=== PATIENT | male | born 1945 | race African-American/Black ===

== ENCOUNTER 2021-12-29 11:01 | Inpatient (IN) | payer MEDICARE, OTHER ==
[2021-12-29] VITALS (10 sets, daily range): BP systolic 87–139; BP diastolic 25–83
[~2021-12-29] VITALS: Ht 172.7 cm; Wt 60.3 kg
--- NOTE | 2021-12-29 11:06 | NUR ---
TO ER BED 8, [id number] FRM [facility] FOR NOTED DARK URINE AND O2 DESATURATION, TRACH COLLAR CONNECTED TO 5LPM , HOLDER CATH, CONNECTED TO MONITOR, AWAITING MD ORDERS
[2021-12-29] MEDS ORDERED: IV NS 0.9% 1,000 ML BAG IV ONE ×2 (11:30→13:30)
[2021-12-29] MEDS ORDERED: CEFTRIAXONE 1GM BAG (ER ONLY) 50 ML IV ONE ×2 (11:30→11:34)
--- NOTE | 2021-12-29 11:39 | NUR ---
FIELD CLERK AT BEDSIDE FOR XRAY
--- NOTE | 2021-12-29 11:40 | NUR ---
URINE COLLECTED AND SENT TO LAB
[2021-12-29 11:53] LABS: BASOPHILS % (AUTO) 0.3 % (0.0-2.0); EOSINOPHILS % (AUTO) 0.5 % (0.0-6.0); HEMATOCRIT 24 % (39-51); HEMOGLOBIN 7.2 g/dL (13.5-17.5); LYMPHOCYTES # (AUTO) 0.7 K/uL (0.8-4.8); LYMPHOCYTES % (AUTO) 4.4 % (20.0-44.0); MEAN CORPUSCULAR HGB CONC 31 g/dl (31.0-36.0); MEAN CORPUSCULAR VOLUME 95 fL (80-96); MONOCYTES # (AUTO) 1.4 K/uL (0.1-1.30); MONOCYTES % (AUTO) 8.4 % (2.0-12.0); NEUTROPHILS # (AUTO) 14.1 K/uL (1.8-8.9); NEUTROPHILS % (AUTO) 86.4 % (43.0-81.0); PLATELET COUNT (AUTO) 118 K/uL (150-450); RED BLOOD CELL COUNT(AUTO) 2.48 MIL/uL (4.5-6.0); WHITE BLOOD COUNT (AUTO) 16.3 K/uL (4.3-11.0)
[2021-12-29] MEDS ORDERED: CARV3.12 GT (11:56)
[2021-12-29] MEDS ORDERED: SCOP1PAT11 TD (11:56)
[2021-12-29] MEDS ORDERED: AMPI3VIA5 IJ (11:56)
[2021-12-29] MEDS ORDERED: CEFI1VIA IV (11:56)
[2021-12-29] MEDS ORDERED: PANT40TA2 GT (11:56)
[2021-12-29] MEDS ORDERED: MINO100T GT (11:56)
[2021-12-29] MEDS ORDERED: LEVE1000 GT (11:56)
[2021-12-29] MEDS ORDERED: MEMA1CAP2 GT (11:56)
[2021-12-29] MEDS ORDERED: METF-440 GT (11:56)
[2021-12-29] MEDS ORDERED: IPRA4AER IH (11:56)
[2021-12-29] MEDS ORDERED: INSU100V39 SQ (11:56)
[2021-12-29] MEDS ORDERED: CHOL200013 GT (11:56)
[2021-12-29] MEDS ORDERED: INSU100V7 SQ (11:56)
[2021-12-29] MEDS ORDERED: CHLO473M3 MM (11:56)
[2021-12-29] MEDS ORDERED: ROSU40TA GT (11:56)
[2021-12-29] MEDS ORDERED: AMLO10TA4 GT (11:56)
[2021-12-29 11:57] LABS: BILIRUBIN,URINE NEGATIVE (NEGATIVE); COLOR,URINE BROWN (YELLOW); LEUKOCYTE ESTERASE ,URINE NEGATIVE (NEGATIVE); NITRITE, URINE NEGATIVE (NEGATIVE); PH,URINE 5.5 (5.0-8.0); PROTEIN,URINE 1+ mg/dl (NEGATIVE); UGLUCOSE NEGATIVE (NEGATIVE); UROBILINOGEN,URINE 0.2 EU/dL (0.2)
--- NOTE | 2021-12-29 12:20 | NUR ---
RESPIRATORY AT BEDSIDE FOR ABG
[2021-12-29 12:24] LABS: CALCIUM, SERUM 9.1 mg/dL (8.5-10.1); CARBON DIOXIDE 21 mmol/L (21-32); CHLORIDE 125 mmol/L (98-107); CREATININE 2.4 mg/dL (0.6-1.3); GLUCOSE 161 mg/dL (74-106); POTASSIUM 4.6 mmol/L (3.5-5.1)
[2021-12-29 12:30] LABS: BACTERIA,URINE 3+ /HPF (None Seen); YEAST,URINE Many /HPF (None Seen)
[2021-12-29 12:30] LABS: ALANINE AMINOTRANSFERASE 16 U/L (12-78); ALKALINE PHOSPHATASE 92 U/L (46-116); ASPARTATE AMINOTRANSFERASE 18 U/L (15-37); BILIRUBIN,DIRECT 0.1 mg/dL (0.0-0.2); BILIRUBIN,TOTAL 1.4 mg/dL (0.2-1.0); TOTAL PROTEIN, SERUM 5.2 g/dL (6.4-8.2)
[2021-12-29] MEDS ORDERED: VANCOMYCIN 1 GM in IV D5W 250 ML IV ONE (12:30)
[2021-12-29] MEDS ORDERED: PIPERACILLIN /TAZOBACTAM 3.375 G in IV D5W 50 ML IV ONE (12:30)
--- NOTE | 2021-12-29 12:30 | NUR ---
COVID SWAB DONE AND SENT TO LAB
[2021-12-29 12:36] LABS: SODIUM SERUM 158 mmol/L (136-145); UREA NITROGEN, BLOOD 93 mg/dL (7-18)
[2021-12-29 12:38] LABS: ALBUMIN 1.1 g/dL (3.4-5.0)
--- NOTE | 2021-12-29 12:38 | NUR ---
ALBUMIN 1.1
[2021-12-29 12:40] LABS: ABG BASE EXCESS -5.3 mmol/L; ABG PCO2 27.7 mmHg (35.0-45.0); ABG PH 7.436 (7.350-7.450); ABG PO2 38.1 mmHg (75.0-100.0); COHb 0.3 % (0.5-1.5); MetHb 0.4 % (0.0-1.5); O2Hb 67.3 % (94.0-97.0); SITE, ABG Right Radial; VENT MODE, BG 10 LPM Trach T-piece
--- NOTE | 2021-12-29 12:42 | NUR ---
LACTIC 3.8
[2021-12-29] MEDS ORDERED: IV D5/0.45 NACL 500 ML IV PRN (13:00)
[2021-12-29] MEDS ORDERED: ONDANSETRON HCL/PF 4 MG/2 ML VIAL IVP PRN (13:30)
[2021-12-29] MEDS ORDERED: Z GUARD REMEDY 4 OZ OINT TP PRN (13:30)
[2021-12-29] MEDS ORDERED: ACETAMINOPHEN 325 MG TABLET PO PRN (13:30)
[2021-12-29 13:54] LABS: BASOPHILS # (AUTO) 0.1 K/uL (0.0-0.2); BASOPHILS % (AUTO) 0.5 % (0.0-2.0); EOSINOPHILS % (AUTO) 0.5 % (0.0-6.0); HEMATOCRIT 23 % (39-51); HEMOGLOBIN 7.1 g/dL (13.5-17.5); LYMPHOCYTES # (AUTO) 1.1 K/uL (0.8-4.8); LYMPHOCYTES % (AUTO) 6.9 % (20.0-44.0); MEAN CORPUSCULAR HGB CONC 30 g/dl (31.0-36.0); MEAN CORPUSCULAR VOLUME 96 fL (80-96); MONOCYTES # (AUTO) 1.7 K/uL (0.1-1.30); MONOCYTES % (AUTO) 11.4 % (2.0-12.0); NEUTROPHILS # (AUTO) 12.3 K/uL (1.8-8.9); NEUTROPHILS % (AUTO) 80.7 % (43.0-81.0); PLATELET COUNT (AUTO) 100 K/uL (150-450); RED BLOOD CELL COUNT(AUTO) 2.44 MIL/uL (4.5-6.0); WHITE BLOOD COUNT (AUTO) 15.3 K/uL (4.3-11.0)
--- NOTE | 2021-12-29 14:13 | NUR ---
BED 257
--- NOTE | 2021-12-29 14:42 | NUR ---
ATTEMPTED TO GIVE REPORT, NURSE IS ON LUNCH, ADVISED TO CALL BACK
--- NOTE | 2021-12-29 14:59 | NUR ---
REPORT GIVEN TO RED FOR SANTOS
--- NOTE | 2021-12-29 15:16 | NUR ---
LACTIC ACID 3.2
--- NOTE | 2021-12-29 15:22 | NUR ---
TRANSFERRED TO BED 257 IN STABLE CONDITION
[2021-12-29] MEDS: PANTOPRAZOLE 40 MG VIAL IV SCH ×2 (16:17→20:53)
[2021-12-29] MEDS: IV D5/0.45 NACL 1,000 ML IV PRN (16:25)
[2021-12-29] MEDS ORDERED: IV NS 0.9% 1,000 ML IV ONE (18:00)
[2021-12-29] MEDS ORDERED: NOREPINEPHRINE 8 MG in IV NS 0.9% 242 ML IV PRN (18:00)
[2021-12-29] MEDS ORDERED: ZOSYN IVPB 2.25 G in IV D5W 50ml IV SCH (18:00)
[2021-12-29] MEDS: MEROPENEM 500 MG in IV NS 0.9% 50 ML IV SCH (18:03)
--- NOTE | 2021-12-29 19:05 | NUR ---
ECOMMERCE MARKETING SPECIALISTBUSINESS DEVELOPMENT DIRECTOR NOTE: ADMITTED PT. FROM ER VIA [facility] AT 1515. REPORT GIVEN BY MILK HAULER TY. PT. LETHARGIC, NON-VERBAL. ON TRACH/VENT: PORTEX #7; AC - 14; VT - 450; FIO2 - 50%; PEEP - 5. CHEST RISING SYMMETRICALLY, NO S/S OF RESPIRATORY DISTRESS. PUBLICATION DISTRIBUTOR READS NSR. PT. HAS G-TUBE, PATENT AND CLAMPED, NO RESIDUAL NOTED. DRESSING C/D/I. NO S/S OF INFECTION. PT. HAS HOLDER CATH WITH 125 ML CLEAR BROWNISH MANRIQUEZ URINE OUTPUT DRAINING BELOW BLADDER. PT. HAS EDEMA ON UPPER AND LOWER EXTREMITIES. SKIN ISSUES NOTED ON L HEEL, SACRUM, L LATERAL CHEST WALL AND R CHEEK. SKIN PRECAUTIONS DONE AND WOUND CONSULT ORDERED. IV ACCESS ON R FA #20G, PATENT AND SALINE LOCKED; INSERTED R HAND #22G WITH D5 1/2 NS RUNNING AT 125 ML/HR. IV DRESSINGS C/D/I WITH NO S/S OF INFILTRATION NOTED. WAITING FOR PICC LINE INSERTION. GIVEN 1L OF NS BOLUS PER MICHAEL BATTERY PLATE REMOVER ORDER DUE TO SBP IN LOW 90'S. BP SLIGHTLY IMPROVED. LEVOPHED ON STANDBY. SAFETY MEASURES MAINTAINED: BED IN LOWEST AND LOCKED POSITION, HOB ELEVATED AT 30 DEGREES, SIDE RAILS UP X3, BED ALARM ON, CALL LIGHT WITHIN REACH. ENDORSED CONTINUITY OF CARE TO DONATION SPECIALIST RN.
[2021-12-30] VITALS (32 sets, daily range): BP systolic 90–155; BP diastolic 28–91
[2021-12-30] MEDS: IV D5/0.45 NACL 1,000 ML IV PRN ×2 (01:20→13:02)
[2021-12-30 04:00] LABS: BASOPHILS % (AUTO) 0.1 % (0.0-2.0); EOSINOPHILS % (AUTO) 0.5 % (0.0-6.0); LYMPHOCYTES # (AUTO) 1.2 K/uL (0.8-4.8); LYMPHOCYTES % (AUTO) 6.7 % (20.0-44.0); MEAN CORPUSCULAR HGB CONC 30 g/dl (31.0-36.0); MEAN CORPUSCULAR VOLUME 97 fL (80-96); MONOCYTES # (AUTO) 1.7 K/uL (0.1-1.30); MONOCYTES % (AUTO) 9.7 % (2.0-12.0); NEUTROPHILS # (AUTO) 14.4 K/uL (1.8-8.9); PLATELET COUNT (AUTO) 94 K/uL (150-450); WHITE BLOOD COUNT (AUTO) 17.4 K/uL (4.3-11.0)
[2021-12-30 04:18] LABS: CARBON DIOXIDE 20 mmol/L (21-32); CHLORIDE 123 mmol/L (98-107); CREATININE 2.5 mg/dL (0.6-1.3); MAGNESIUM 1.7 mg/dL (1.8-2.4); PHOSPHORUS 4.2 mg/dL (2.5-4.9); POTASSIUM 4.5 mmol/L (3.5-5.1); SODIUM SERUM 153 mmol/L (136-145)
[2021-12-30 04:21] LABS: CHOLESTEROL 81 mg/dL (<200); HDL CHOLESTEROL 26 mg/dL (40-60); LDL 41 mg/dL (0-99); TRIGLYCERIDES 132 mg/dL (30-150)
[2021-12-30 04:36] LABS: GLUCOSE 377 mg/dL (74-106); UREA NITROGEN, BLOOD 92 mg/dL (7-18)
[2021-12-30 04:53] LABS: RED BLOOD CELL COUNT(AUTO) 1.95 MIL/uL (4.5-6.0)
[2021-12-30 04:54] LABS: HEMATOCRIT 19 % (39-51); HEMOGLOBIN 5.7 g/dL (13.5-17.5)
--- NOTE | 2021-12-30 05:15 | NUR ---
ICU/RN: CRITICAL LAB VALUES RELAYED TO DR. CHILDS NEW ORDERS RECEIVED AND CARRIED OUT.
[2021-12-30] MEDS: MEROPENEM 500 MG in IV NS 0.9% 50 ML IV SCH ×2 (05:23→17:18)
--- NOTE | 2021-12-30 05:44 | NUR ---
END OF SHIFT PT REMAINS ON VENT. FIO2 TITRATED TO 40%. O2 SAT 100%. SMALL AMT OF THIN WHITE SECRETIONS. PT HAS SHILEY 8 TRACH. ALARMS SET AND AUDIBLE. NOTICED PT HAS ETT QUIJANO BEGINNING OF SHIFT AND CHANGED INTO A TRACH QUIJANO. AMBU BAG AT BEDSIDE. Addendum: 12/30/21 at 0549 by HARISH GUY RT Amended: Links added.
[2021-12-30 05:48] LABS: BAND % (MANUAL) 5 % (0.0-5.0); BASOPHILS % (MANUAL) 0 % (0.0-2.0); EOSINOPHILS % (MANUAL) 0 % (0-4); LYMPHOCYTES % (MANUAL) 8 % (16-48); MONOCYTES % (MANUAL) 6 % (0-11.0); NEUTROPHILS % (MANUAL) 81 (42-76)
--- NOTE | 2021-12-30 06:19 | NUR ---
ICU/RN: MESSAGE LEFT FOR RAYMOND TRIPP [phone] FOR CONSENT FOR BLOOD TRANSFUSION AND CONSENT FOR PICC PLACEMENT.
--- NOTE | 2021-12-30 06:30 | NUR ---
ICU/RN: CONSENT OBTAINED RAYMOND TRIPP [phone] FOR CONSENT FOR BLOOD TRANSFUSION AND CONSENT FOR PICC PLACEMENT.
--- NOTE | 2021-12-30 07:30 | NUR ---
OPENING NOTE: REPORT RECEIVED FROM NARENDRA FALL. LABS AND ORDERS REVIEWED DURING REPORT. PT'S H/H 5.7, 2 UNITS OF PRBC'S ORDERED. PER REPORT PT HAD A LARGE LIQUID BLACK BM EARLY THIS AM. PT IS CHRONIC VENT TRACH PATIENT. PER REPORT URINE OUTPUT IS LOW, WILL CONTINUE TO MONITOR. PT CHECKED ON HOURLY AND PRN BY NURSING STAFF.
[2021-12-30] MEDS: PANTOPRAZOLE 40 MG VIAL IV SCH ×2 (09:08→20:10)
[2021-12-30 09:22] LABS: CREATININE, URINE 41.6 MG/DL (30.0-125.0)
[2021-12-30 09:23] LABS: BILIRUBIN,URINE NEGATIVE (NEGATIVE); COLOR,URINE YELLOW (YELLOW); LEUKOCYTE ESTERASE ,URINE TRACE (NEGATIVE); NITRITE, URINE NEGATIVE (NEGATIVE); PH,URINE 5.5 (5.0-8.0); PROTEIN,URINE 1+ mg/dl (NEGATIVE); UGLUCOSE NEGATIVE (NEGATIVE); UROBILINOGEN,URINE 0.2 EU/dL (0.2)
[2021-12-30 10:35] LABS: OCCULT BLOOD STOOL POSITIVE (NEGATIVE)
[2021-12-30 10:45] LABS: RBC,URINE 51-80 /HPF (0-2)
[2021-12-30 10:46] LABS: BACTERIA,URINE Few /HPF (None Seen); SQUAMOUS EPITHELIAL CELL,UR Few /HPF (None Seen); YEAST,URINE Many /HPF (None Seen)
[2021-12-30] MEDS ORDERED: VANCOMYCIN HCL 0.75 GM in IV D5W 250 ML IV SCH (12:00)
[2021-12-30 12:30] LABS: ABG BASE EXCESS -7.2 mmol/L; ABG PCO2 29.6 mmHg (35.0-45.0); ABG PH 7.382 (7.350-7.450); AaDO2 122.2 mmHg; COHb 0.4 % (0.5-1.5); MetHb 0.5 % (0.0-1.5); O2Hb 97.1 % (94.0-97.0); SITE, ABG Right Radial
[2021-12-30] MEDS: Magnesium 1GM/D5W 100ML PREMIX 100 ML IV SCH ×2 (14:28→16:15)
--- NOTE | 2021-12-30 18:51 | NUR ---
END OF SHIFT NOTE: PT HAD A FAIRLY UNEVENTFUL DAY. 2 UNITS OF PRBC'S GIVEN PER MD ORDERS FOLLOWED BY LASIX 20MG IV. 2 SMALL BLACK TARRY BMS THIS SHIFT. NO CHANGES IN VENT SETTINGS OR IV FLUIDS. NO ELEVATED TEMPS THIS SHIFT. PT CHECKED ON HOURLY AND PRN BY NURSING STAFF.
[2021-12-30] MEDS ORDERED: FUROSEMIDE 20 MG/2 ML VIAL IV ONE (19:00)
--- NOTE | 2021-12-30 20:02 | NUR ---
RECEIVED PT ON A VENT AC MODE. PT TRACHED ARIANA 8. NO RESP DISTRESS NOTED. PT TOLERATING VENT SETTINGS. SX'D SMALL AMT OF THIN WHITE SECRETIONS. VENT ALARMS SET AND AUDIBLE. AMBU BAG AT BEDSIDE. Addendum: 12/30/21 at 2006 by HARISH GUY RT Amended: Links added.
--- NOTE | 2021-12-30 20:06 | NUR ---
RN NOTE RECEIVED PT WITH TRACH ON VENT, O2 SAT AT 98%. OPEN EYES TO STIMULI. NOT FOLLOWING ANY COMMANDS. PICC LINE IN PLACE, ON D5 1/2 NS AT 125ML/HR. GT INTACT, FEEDING ON HOLD. HOLDER CATH IN PLACE. WILL CONTINUE TO MONITOR.
[2021-12-30] MEDS: FLUCONAZOLE IN NS 100 MG in PREMIX 1 EA IV SCH ×2 (20:09)
[2021-12-31] VITALS (58 sets, daily range): BP systolic 66–137; BP diastolic 31–76
[2021-12-31] MEDS: IV D5/0.45 NACL 1,000 ML IV PRN ×3 (01:38→18:49)
[2021-12-31] MEDS: MEROPENEM 500 MG in IV NS 0.9% 50 ML IV SCH ×2 (04:43→17:00)
[2021-12-31 05:40] LABS: CALCIUM, SERUM 8.2 mg/dL (8.5-10.1); CARBON DIOXIDE 20 mmol/L (21-32); CHLORIDE 123 mmol/L (98-107); CREATININE 3.3 mg/dL (0.6-1.3); GLUCOSE 177 mg/dL (74-106); MAGNESIUM 2.3 mg/dL (1.8-2.4); POTASSIUM 4.8 mmol/L (3.5-5.1); SODIUM SERUM 153 mmol/L (136-145)
[2021-12-31 05:41] LABS: UREA NITROGEN, BLOOD 99 mg/dL (7-18)
[2021-12-31 06:03] LABS: BASOPHILS % (AUTO) 0.1 % (0.0-2.0); EOSINOPHILS % (AUTO) 0.6 % (0.0-6.0); HEMATOCRIT 22 % (39-51); HEMOGLOBIN 7.4 g/dL (13.5-17.5); LYMPHOCYTES # (AUTO) 0.9 K/uL (0.8-4.8); LYMPHOCYTES % (AUTO) 5.4 % (20.0-44.0); MEAN CORPUSCULAR HGB CONC 33 g/dl (31.0-36.0); MEAN CORPUSCULAR VOLUME 91 fL (80-96); MONOCYTES # (AUTO) 1.7 K/uL (0.1-1.30); MONOCYTES % (AUTO) 10.2 % (2.0-12.0); NEUTROPHILS # (AUTO) 13.9 K/uL (1.8-8.9); NEUTROPHILS % (AUTO) 83.7 % (43.0-81.0); PLATELET COUNT (AUTO) 72 K/uL (150-450); RED BLOOD CELL COUNT(AUTO) 2.46 MIL/uL (4.5-6.0); WHITE BLOOD COUNT (AUTO) 16.6 K/uL (4.3-11.0)
--- NOTE | 2021-12-31 06:49 | NUR ---
RN NOTE PT TOLERATES VENT SETTINGS. WITH NO S/SX OF DISTRESS. NOTED WITH BLOODY OUTPUT FROM RECTUM X1, AM HGB 7.4. HOLDER CATH IN PLACE WITH GRAYISH URINE OUTPUT, WITH 50 ML URINE OUTPUT. PT NOTED WITH LOW BODY TEMP, PLACED ON BAIRHUGGER, LATEST TEMP 97.5. AWAITING FOR GI CONSULT. ENDORSED TO GERTRUDIS FOR SANTOS.
--- NOTE | 2021-12-31 07:30 | NUR ---
OPENING NOTE: REPORT RECEIVED FROM KHRIS FALL. LABS AND ORDERS REVIEWED DURING REPORT. PER REPORT NO SIGNIFICANT CHANGES OVERNIGHT EXCEPT FOR 1 INCIDENT OF BRIGHT RED BLOOD FROM RECTUM, WILL CONTINUE TO MONIITOR. PT CHECKED ON HOURLY AND PRN BY NURSING STAFF.
--- NOTE | 2021-12-31 08:00 | NUR ---
RT NOTE PATIENT RECEIVED TRACH'D ON MECH VENT. SALES REPRESENTATIVE [employer] DONE. NO RESP DISTRESS NOTED. PT TOLERATING VENT SETTINGS AT THIS TIME. SUCTIONED SMALL AMOUNTS OF THIN WHITE SECRETIONS. VENT ALARMS SET AND FUNCTIONING PROPERLY. AMBU BAG AT HEAD OF BED. NO SOB NOTED AT THIS TIME. WILL CONTINUE TO MONITOR FOR ANY CHANGES.
[2021-12-31] MEDS: PANTOPRAZOLE 40 MG VIAL IV SCH ×2 (08:53→23:35)
[2021-12-31 09:00] LABS: LYMPHOCYTES % (MANUAL) 7 % (16-48); MONOCYTES % (MANUAL) 4 % (0-11.0); NEUTROPHILS % (MANUAL) 89 (42-76)
[2021-12-31 15:37] LABS: BASOPHILS % (AUTO) 0.1 % (0.0-2.0); EOSINOPHILS % (AUTO) 0.5 % (0.0-6.0); HEMATOCRIT 21 % (39-51); LYMPHOCYTES # (AUTO) 0.8 K/uL (0.8-4.8); LYMPHOCYTES % (AUTO) 5.4 % (20.0-44.0); MEAN CORPUSCULAR HGB CONC 32 g/dl (31.0-36.0); MEAN CORPUSCULAR VOLUME 92 fL (80-96); MONOCYTES # (AUTO) 1.9 K/uL (0.1-1.30); MONOCYTES % (AUTO) 12.2 % (2.0-12.0); NEUTROPHILS # (AUTO) 12.8 K/uL (1.8-8.9); NEUTROPHILS % (AUTO) 81.8 % (43.0-81.0); PLATELET COUNT (AUTO) 70 K/uL (150-450); RED BLOOD CELL COUNT(AUTO) 2.24 MIL/uL (4.5-6.0); WHITE BLOOD COUNT (AUTO) 15.7 K/uL (4.3-11.0)
[2021-12-31 15:42] LABS: HEMOGLOBIN 6.6 g/dL (13.5-17.5)
--- NOTE | 2021-12-31 15:43 | NUR ---
MICHAEL GUEVARA NOTIFIED OF H/H 6.07/26. AWAITING RESPONSE
--- NOTE | 2021-12-31 17:11 | NUR ---
ORDERS RECEIVED FOR 1 UNIT PRBCS FROM MICHAEL GUEVARA. PER PT'S DAUGHTER REQUEST ORDER RECEIVED TO MAKE PATIENT A DNR. HD TO START SHORTLY. 1700 [facility] WILL BE HELD UNTIL AFTER HD.
[2021-12-31] MEDS: NOREPINEPHRINE 8 MG in IV NS 0.9% 242 ML IV PRN (18:34)
[2021-12-31 18:45] LABS: BAND % (MANUAL) 5 % (0.0-5.0); LYMPHOCYTES % (MANUAL) 7 % (16-48); MONOCYTES % (MANUAL) 5 % (0-11.0); NEUTROPHILS % (MANUAL) 83 (42-76)
--- NOTE | 2021-12-31 19:16 | NUR ---
HD WAS STOPPED BY RN LESS THAN AN HOUR AFTER IT STARTED. PT'S HR WENT UP TO 120'S, RESPIRATIONS WENT UP TO 55, BLOOD PRESSURE DROPPED. HD RN STATED THE LINE IS CLOTTED AND SHE NOTICED A LOT OF BLOOD AROUND THE FEMORAL HD CATHETER AND BETWEEN PT'S LEGS. HD CATHETER SITE CLEANED, DRESSING CHANGED BY HD RN, DID NOT APPEAR TO HAVE MUCH BLOOD UNDER THE DRESSING. BEDSIDE RN AND RUBBER GRINDER CLEANED UP PATIENT NOTING THAT THERE WAS VERY LITTLE BLOOD AROUND PT'S RECTUM, PT'S DRESSING ON SACRUM WAS CLEAN AND DRY. THE MAJORITY OF BLOOD WAS ON TOP OF PATIENTS LEFT LEG AND TO THE OUTSIDE OF PATIENTS LEG. THE BLOOD POSSIBLY CAME FROM THE CONNECTION FROM THE MACHINE TO THE HD CATHETER. PT WAS CHANGED TO DNR PER PT'S DAUGHTERS REQUEST THIS SHIFT. LEVOPHED WAS STARTED AFTER HD STOPPED. COLONOSCOPY IS SCHEDULED FOR Sunday, CONSENT IS ON CHART.
[2021-12-31] MEDS: FLUCONAZOLE IN NS 100 MG in PREMIX 1 EA IV SCH ×2 (23:35)
[2022-01-01] VITALS (41 sets, daily range): BP systolic 70–145; BP diastolic 22–84
[2022-01-01] MEDS: IV D5/0.45 NACL 1,000 ML IV PRN (04:21)
[2022-01-01 05:12] LABS: BASOPHILS % (AUTO) 0.1 % (0.0-2.0); EOSINOPHILS % (AUTO) 0.4 % (0.0-6.0); HEMATOCRIT 24 % (39-51); HEMOGLOBIN 8.1 g/dL (13.5-17.5); LYMPHOCYTES # (AUTO) 1.2 K/uL (0.8-4.8); LYMPHOCYTES % (AUTO) 5.8 % (20.0-44.0); MEAN CORPUSCULAR HGB CONC 34 g/dl (31.0-36.0); MEAN CORPUSCULAR VOLUME 91 fL (80-96); MONOCYTES # (AUTO) 2.1 K/uL (0.1-1.30); MONOCYTES % (AUTO) 10.8 % (2.0-12.0); NEUTROPHILS # (AUTO) 16.4 K/uL (1.8-8.9); NEUTROPHILS % (AUTO) 82.9 % (43.0-81.0); PLATELET COUNT (AUTO) 61 K/uL (150-450); RED BLOOD CELL COUNT(AUTO) 2.66 MIL/uL (4.5-6.0); WHITE BLOOD COUNT (AUTO) 19.7 K/uL (4.3-11.0)
[2022-01-01] MEDS: MEROPENEM 500 MG in IV NS 0.9% 50 ML IV SCH (05:35)
[2022-01-01 05:37] LABS: CALCIUM, SERUM 8.4 mg/dL (8.5-10.1); CARBON DIOXIDE 18 mmol/L (21-32); CHLORIDE 117 mmol/L (98-107); CREATININE 3.9 mg/dL (0.6-1.3); GLUCOSE 157 mg/dL (74-106); MAGNESIUM 2.1 mg/dL (1.8-2.4); PHOSPHORUS 5.6 mg/dL (2.5-4.9); SODIUM SERUM 147 mmol/L (136-145)
[2022-01-01 05:39] LABS: UREA NITROGEN, BLOOD 99 mg/dL (7-18)
[2022-01-01 05:56] LABS: BAND % (MANUAL) 4 % (0.0-5.0); BASOPHILS % (MANUAL) 0 % (0.0-2.0); EOSINOPHILS % (MANUAL) 0 % (0-4); LYMPHOCYTES % (MANUAL) 7 % (16-48); MONOCYTES % (MANUAL) 9 % (0-11.0); NEUTROPHILS % (MANUAL) 80 (42-76)
--- NOTE | 2022-01-01 07:34 | NUR ---
ICU/RN PT RECEIVED IN BED, OBTUNDED. PT ON MECHANICAL VENT FIO2 40% PEEP OF 5. PT SR ON MONITOR HR 82, O2 SAT 100%. HOLDER CATH IN PLACE, NO OUTPUT THIS AM. GTUBE IN PLACE, CLAMPED. PER PRODUCER ASSISTANT REPORT, PT HAD ONE LARGE BLOODY BM OVERNIGHT. RIGHT UA PICC LINE, RIGHT FA 20G AND RIGHT HAND 22G IN PLACE. LEFT FEMORAL HD CATH IN PLACE. PT ON D51/2NS AT 125ML/HR AND LEVOPHED AT 0.2MCG/KG/MIN. BED LOCKED AND IN LOWEST POSITION, CALL LIGHT WITHIN REACH, 3 SIDE RAILS UP.
[2022-01-01] MEDS: PANTOPRAZOLE 40 MG VIAL IV SCH (08:01)
[2022-01-01] MEDS: NOREPINEPHRINE 8 MG in IV NS 0.9% 242 ML IV PRN (09:05)
--- NOTE | 2022-01-01 09:30 | NUR ---
ICU/RN ONGOING HD. BP MONITORED CLOSELY. LEVOPHED DRIP ADJUSTED ACCORDING TO PROTOCOL. PER HD NURSE, PT'S BLOOD IS CLOTTING.
--- NOTE | 2022-01-01 10:40 | NUR ---
NO CAROTID OR PERIPHERAL PULSES, PUPILS ARE FIXED AND NONREACTIVE TO LIGHT, NO RESPONSE TO PAINFUL STIMULI. PT HAS A PACEMAKER, WHICH IS STILL FIRING, GUNNAR RAMIREZ DNP DID AN ULTRASOUND OF PT'S HEART AT BEDSIDE. STATED NO CARDIAC ACTIVITY VISUALIZED. PT TRACH/VENT, VENT TURNED OFF, NO RESPIRATIONS FOR 1 MINUTE. PT IS A DNR. PT PRONOUNCED AT 1040.
--- NOTE | 2022-01-01 10:40 | NUR ---
RT NOTE RT CALLED TO BEDSIDE TO REMOVE VENT. PATIENT .
[2022-01-01] MEDS ORDERED: CHLORHEXIDINE GLUCONATE 15 ML UDC MM SCH (11:00)
--- NOTE | 2022-01-01 11:01 | NUR ---
ICU/RN COLEEN RODRIGUEZ NOTIFIED OF PT'S PASSING AT 1040. DAUGHTER RAYMOND SCHULZ ([phone]) NOTIFIED AT 1046 [facility], TALKED TO SIERRA NOTIFIED AT 1052.
--- NOTE | 2022-01-01 11:08 | NUR ---
ICU/RN HOUSE SUP DOROTHY AND ADX SILVIANO NOTIFIED AT 7725.
[2022-01-01] MEDS ORDERED: LEVETIRACETAM SOL (5 ML) 100 MG/ML UDC GT SCH (12:00)
== END 2022-01-01 10:40 | DRG 871 ==
LOC: ER 11:16 → ICU 14:54
PROVIDERS: ADMIT Nurse Practitioner Acute Care; ATTEND Nurse Practitioner Acute Care
PROC: 5A1945Z Respiratory Ventilation, 24-96 Consecutive Hours (ICD-10-PCS; principal; 2021-12-29)
PROC: 02HV33Z Insertion of Infusion Device into Superior Vena Cava, Percutaneous Approach (ICD-10-PCS; 2021-12-30)
PROC: B548ZZA Ultrasonography of Superior Vena Cava, Guidance (ICD-10-PCS; 2021-12-30)
PROC: 30233N1 Transfusion of Nonautologous Red Blood Cells into Peripheral Vein, Percutaneous Approach (ICD-10-PCS; 2021-12-30)
PROC: 06HY33Z Insertion of Infusion Device into Lower Vein, Percutaneous Approach (ICD-10-PCS; 2021-12-31)
PROC: 5A1D70Z Performance of Urinary Filtration, Intermittent, Less than 6 Hours Per Day (ICD-10-PCS; 2021-12-31)
DX: A41.9 Sepsis, unspecified organism (principal); E43 Unspecified severe protein-calorie malnutrition; R53.2 Functional quadriplegia; R65.21 Severe sepsis with septic shock; J18.9 Pneumonia, unspecified organism; N17.0 Acute kidney failure with tubular necrosis; J96.21 Acute and chronic respiratory failure with hypoxia; N39.0 Urinary tract infection, site not specified; K92.2 Gastrointestinal hemorrhage, unspecified; E87.0 Hyperosmolality and hypernatremia; G93.49 Other encephalopathy; D68.69 Other thrombophilia; J90 Pleural effusion, not elsewhere classified; J98.11 Atelectasis; I13.0 Hypertensive heart and chronic kidney disease with heart failure and stage 1 through stage 4 chronic kidney disease, or unspecified chronic kidney disease; E83.42 Hypomagnesemia; N18.9 Chronic kidney disease, unspecified; Z20.822 Contact with and (suspected) exposure to COVID-19; Z86.73 Personal history of transient ischemic attack (TIA), and cerebral infarction without residual deficits; Z95.0 Presence of cardiac pacemaker; D69.6 Thrombocytopenia, unspecified; D64.9 Anemia, unspecified; E11.22 Type 2 diabetes mellitus with diabetic chronic kidney disease; E88.09 Other disorders of plasma-protein metabolism, not elsewhere classified; E86.0 Dehydration; R13.10 Dysphagia, unspecified; Z66 Do not resuscitate; Z79.4 Long term (current) use of insulin; Z79.84 Long term (current) use of oral hypoglycemic drugs; Z93.1 Gastrostomy status; Z93.0 Tracheostomy status; Z68.20 Body mass index [BMI] 20.0-20.9, adult; I50.9 Heart failure, unspecified
CPT/HCPCS: 31720; 36415; 36569; 36600; 71045-TC; 76604-TC; 76770-TC; 80048-TC; 80061-TC; 80076-TC; 80202-TC; 81001; 82272-TC; 82570-TC; 82803-TC; 82962-TC; 83605-TC; 83735-TC; 83880; 84100-TC; 84300-TC; 84484-TC; 85025-TC; 85730-TC; 86706; 86850-TC; 87040-TC; 87081-TC; 87086-TC; 87340; 90935-TC; 93307-TC; 93970-TC; 94002-TC; 94003-TC; 94664-TC; 94760-TC; 94762-TC; 94799-TC; 99082-TC; A4216; C9113; C9803; G0378; J0696; J1450; J1940; J2185; J2543; J3370; J3475; J3490; J7030; J7050; J7060; P9016